=== PATIENT | female | born 1995 | race Caucasian/White ===

== ENCOUNTER 2020-01-04 22:02 | Emergency (ER) | payer OTHER, SELFPAY ==
[2020-01-04 22:05] VITALS: BP 144/83; PULSE 100; RESP 16; TEMP 36.4; O2SAT 95
--- NOTE | 2020-01-04 22:42 | ED.ALLEREA ---
HPI - Allergic Reaction General Chief complaint: Allergic Reaction Stated complaint: allergic reaction Time Seen by Provider: 01/04/20 22:15 Source: patient Mode of arrival: ambulatory Limitations: no limitations History of Present Illness HPI narrative: 24 years old white female presents with trouble swallowing. Few minutes prior to arrival. Patient was started on penicillin VK for ear pain around noon today. After receiving the first pill developed tingling numbness of the lips and tightness of the throat. Patient went to urgent care, received Solu-Medrol IM and Pepcid. Physical exam showed bilateral earwax impaction. Patient was discharged home and was told if he had similar symptoms go to the emergency room immediately. Patient was doing okay few minutes prior to arrival felt tingling numbness in her lips jaw and unable to swallow her saliva. Patient swallowed her dinner prior to that. Currently feeling okay. Patient denies difficulty breathing or skin rash Related Data Allergies Allergy/AdvReac Type Severity Reaction Status Date / Time Cephalosporins Allergy Intermediate Hives Verified 10/30/19 13:02 Penicillins Allergy Difficulty Verified 01/04/20 22:19 Swallowing Review of Systems Review of Systems: Narrative: CONSTITUTIONAL: Denies fever, chills, or sweats. EYES: Denies visual changes, redness, or discharge. ENT: Denies rhinorrhea, congestion, sore throat, complaining of ear aches bilaterally CARDIOVASCULAR: Denies chest pain, palpitations, or edema. RESPIRATORY: Denies cough or dyspnea. GASTROINTESTINAL: Denies abdominal pain, nausea, vomiting, or diarrhea. GENITOURINARY: Denies dysuria or hematuria. SKIN: Denies rash or itching. MUSCULOSKELETAL: Denies back pain, joint pain, or myalgia. NEUROLOGIC: Denies headache, numbness, or weakness. PSYCHIATRIC: Denies anxiety or depression. [facility], LAT[facility] Past Medical History Medical History (Updated 01/04/20 @ 22:53 by Ayaz Phillip MD) Anxiety Dysmenorrhea Family History Family History Other Asthma Cerebrovascular accident Family history of arthritis Family history of malignant neoplasm Social History Social History Smoking status: Never smoker Second hand tobacco smoke exposure: No Alcohol intake: never Exam Narrative: Exam Narrative: General appearance: Well-developed, well-nourished Skin: Normal color no skin rash Head: Normocephalic, nontraumatic Eyes: Clear conjunctiva ENT: Oropharynx normal, ears normal, bilateral earwax impaction Neck: Supple, nontender Chest and respiratory: Airway patent, no respiratory distress, no accessory muscle use Heart: Regular rate/rhythm Abdomen: Soft, nontender, no organomegaly, quiet bowel sounds Neurologic: Alert and oriented ?3, Course Course Emergency Course: Stable Vital Signs Vital signs: Vital Signs Temperature 36.4 C L 01/04/20 22:05 Pulse Rate 100 01/04/20 22:05 Respiratory Rate 16 01/04/20 22:05 Blood Pressure 144/83 H 01/04/20 22:05 Pulse Oximetry 95 01/04/20 22:05 Temperature 36.4 C L 01/04/20 22:05 Pulse Rate 100 01/04/20 22:05 Respiratory Rate 16 01/04/20 22:05 Blood Pressure 144/83 H 01/04/20 22:05 Pulse Oximetry 95 01/04/20 22:05 Procedures Ear Wax Removal Both Ears: Ear Wax Removal Date: 01/04/20 Ear Wax Removal Time: 22:47 Cerumenolytic Used: other (Curette) Results: Re-examined: cerumen removed completely TM Examination: TM(s) intact, normal appearance Ear Canal Exam: bleeding Noted Patient Tolerated Procedure: well Complications: bleeding (Very s
[2020-01-04] MEDS: EPINEPHrine HCL INJ 1 MG/ML AMPUL 0.3 MG IM (22:43)
[2020-01-04] MEDS: predniSONE 20 MG TABLET 60 MG PO (22:43)
[2020-01-04 23:47] VITALS: BP 128/77; PULSE 99; RESP 18; O2SAT 99
== END 2020-01-04 23:45 | disposition home or self-care (01) ==
PROVIDERS: Emergency Provider Emergency Medicine; PCP Family Medicine
DX: R13.10 Dysphagia, unspecified (principal); R20.0 Anesthesia of skin; R09.89 Other specified symptoms and signs involving the circulatory and respiratory systems; F41.9 Anxiety disorder, unspecified; T36.0X5A Adverse effect of penicillins, initial encounter; H61.23 Impacted cerumen, bilateral
CPT/HCPCS: 69210; 96372; 99283; J0171; J7512